=== PATIENT | male | born 1955 | race Hispanic/Latino ===

== ENCOUNTER 2019-04-09 09:25 | Emergency (ER) | payer SELFPAY ==
[~2019-04-09] VITALS: Ht 167.6 cm; Wt 86.2 kg
[2019-04-09] MEDS ORDERED: CLONIDINE HCL 0.2 MG TAB PO ONE (09:45)
[2019-04-09] MEDS ORDERED: HYDRALAZINE HCL 20 MG/ML VIAL IV STA (10:24)
[2019-04-09] MEDS ORDERED: HYDROCODONE/APAP 10MG-325MG TAB PO ONE (10:30)
--- NOTE | 2019-04-09 10:33 | Diagnostic Imaging Report ---
CT BRAIN WO, CT MAXIO FAC/PARANAS WO HISTORY: Left ear pain COMPARISON: None. TECHNIQUE: Axial CT images through the head and face were obtained without contrast. Coronal/sagittal reformations were created. One or more of the following dose reduction techniques were used: Automated exposure control, adjustment of the mA and/or kV according to patient size, and/or utilization of iterative reconstruction technique. DISCUSSION: HEAD CT: Scalp/Skull: Unremarkable. Brain sulci: Mildly prominent. Ventricles: Compensatory dilatation. Extra-axial spaces: No masses or fluid collections. Mild carotid siphon calcifications are present. Parenchyma: Approximately 1.2 cm cortical hyperdense lesion is seen in the medial left parietal lobe, near the anterior left parieto-occipital sulcus; there is no significant surrounding vasogenic edema or mass effect. Punctate cortical calcification along the right inferior frontal sulcus may be from remote infection or inflammation. Mild periventricular white matter hypodensities are likely chronic microvascular ischemic changes. Focal hypodense lesion in the right subinsular region may be a prominent perivascular space or old lacunar infarct. Otherwise, no mass or large vascular territory acute infarct. Dural sinuses: No abnormal densities. Sellar/Suprasellar region: Intact. Skull base: Intact. Incidental findings: None. FACIAL CT: Soft tissue thickening is seen along the left external auditory canal leung with associated obstruction laterally. Associated small left middle ear effusion is present as well. There is no associated osseous destruction. The left ossicles are grossly intact. No acute fracture is seen. No destructive osseous lesions are seen. The orbits are intact. Intraorbital contents are grossly unremarkable. Mild bilateral ethmoid air cell mucosal thickening is present. Otherwise, the visualized soft tissues are grossly unremarkable. IMPRESSION: Head CT: 1. Approximately 1.2 cm cortical hyperdense lesion in the medial left parietal lobe may be a cavernous malformation or small acute to subacute hematoma. No significant edema or mass effect. This can be further evaluated with brain MRI. 2. No other acute intracranial abnormalities. 3. Mild supratentorial chronic microvascular ischemic change. Mild generalized cerebral volume loss. 4. Focal hypodense lesion in the right subinsular region may be a prominent perivascular space or old lacunar infarct. 5. Punctate right frontal cortical calcification may be from remote infection or inflammation. Maxillofacial CT: 1. Soft tissue thickening along the left external auditory canal with obstruction laterally. No osseous destruction. This can be correlated with physical examination (otitis externa?). 2. Associated small left middle ear effusion. Signed by: Dr. Javier Diaz M.D. on 04/09/2019 10:29 AM
[2019-04-09] MEDS ORDERED: HYDRALAZINE HCL 20 MG/ML VIAL ONE (10:34)
[2019-04-09 10:40] LABS: BASOPHILS # (AUTO) 0.1 (0.0-0.1); BASOPHILS % 0.5 % (0.0-1.0); EOSINOPHILS # (AUTO) 0.1 (0.0-0.4); EOSINOPHILS % 0.9 % (0.0-6.0); HEMATOCRIT 41.3 % (38.2-49.6); HEMOGLOBIN 14.4 g/dL (14.0-18.0); LYMPHOCYTES # (AUTO) 1.6 (1.0-3.2); LYMPHOCYTES % 14.3 % (18.0-39.1); MEAN CORPUSCULAR HEMOGLOBIN 29.8 pg (28-32); MEAN CORPUSCULAR HGB CONC 34.9 g/dL (31-35); MEAN CORPUSCULAR VOLUME 85.3 fL (81-99); MONOCYTES # (AUTO) 0.8 (0.2-0.8); MONOCYTES % 6.9 % (4.4-11.3); NEUTROPHILS # (AUTO) 8.5 (2.1-6.9); NEUTROPHILS % 76.8 % (38.7-80.0); PLATELET COUNT 197 x10e3/uL (140-360); RED BLOOD COUNT 4.84 x10e6/uL (4.3-5.7); RED CELL DISTRIBUTION WIDTH 12.2 % (11.7-14.4)
[2019-04-09 11:03] LABS: ALBUMIN 3.5 g/dL (3.5-5.0); ALBUMIN/GLOBULIN RATIO 1.1 (0.8-2.0); ANION GAP 12.9 mmol/L (8-16); CALCIUM 9.5 mg/dL (8.4-10.2); CREATININE, SERUM 1.61 mg/dL (0.72-1.25); POTASSIUM 3.9 mmol/L (3.5-5.1)
[2019-04-09 11:11] LABS: CREATINE KINASE MB 0.5 ng/mL (0-5.0)
--- NOTE | 2019-04-09 11:11 | NUR ---
Walking rounds with Nayely. OMARI. Patient in no distress at this time.
[2019-04-09] MEDS ORDERED: GADOBENATE DIMEGLUMINE 1 ML IV ONE (11:42)
[2019-04-09] MEDS ORDERED: AUGMENTIN 875-1 EACH PO (14:37)
--- NOTE | 2019-04-09 15:17 | Diagnostic Imaging Report ---
MRI BRAIN WOW HISTORY: ear pain COMPARISON: Head and face CT from earlier today TECHNIQUE: Multiplanar, multisequence MRI of the brain (including diffusion-weighted imaging) was performed before and after the administration of intravenous, gadolinium based contrast. 17 mL of MultiHance were administered. DISCUSSION: Scalp/bone marrow: Incidental focal, nonaggressive enhancing lesion along the posterior inferior left maxillary sinus is likely a fibro-osseous lesion. Brain sulci: Mildly prominent. Ventricles: Compensatory dilatation. Extra-axial spaces: No masses or fluid collections. Parenchyma: Approximately 1.1 cm T1 hyperintense, T2 hypointense cortical lesion is seen along the anteroinferior left precuneus. There is mild surrounding T2/FLAIR hyperintensity and mild intrinsic magnetic susceptibility. No definite associated enhancement is seen. 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 Mild magnetic susceptibility in the left paramedian dusty is likely from remote microhemorrhage. Scattered T2/FLAIR hyperintense foci throughout the supratentorial white matter are likely chronic microvascular ischemic changes. Otherwise, no mass or acute vascular insults. No abnormal parenchymal, leptomeningeal, or dural enhancement is seen. Vessels: Normal flow voids in major arteries and veins. Sellar/Suprasellar region: No abnormalities. Craniocervical junction: No abnormalities. Incidental findings: Mild bilateral ethmoid air some mucosal thickening is present. Soft tissue swelling along the left external auditory canal is again noted; correlate for otitis externa. T2 hyperintense left mastoid and middle ear effusions are present. IMPRESSION: 1. Approximately 1.1 cm early subacute cortical hematoma in the medial left parietal lobe with mild surrounding vasogenic edema. No significant mass effect. This could be related to amyloid angiopathy, other vasculopathy, or cavernous malformation. Follow-up brain MRI in 3 months is recommended. 2. No other acute intracranial abnormalities. 3. Mild supratentorial chronic microvascular ischemic changes. 4. Mild generalized cerebral volume loss. 5. 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 Associated remote microhemorrhage in the left paramedian dusty may be related to hypertension or other vasculopathy. 6. Soft tissue swelling along the left external auditory canal; correlate for otitis externa. Associated left mastoid/middle ear effusion. Signed by: Dr. Javier Diaz M.D. on 04/09/2019 3:14 PM
--- NOTE | 2019-04-09 16:36 | NUR ---
TRANSFER INITIATED TO [facility] AT THIS TIME, SPOKE WITH LOIS.
--- NOTE | 2019-04-09 16:55 | NUR ---
report called to aurelio sigala rn for this pt. to go to [facility]5/bed 16. accepting physician is dr. esther lara.
--- NOTE | 2019-04-09 17:03 | NUR ---
[facility] WAS CALLED;SPOKE WITH SARI. ETA APPROX. 30-45MIN.
== END 2019-04-09 18:00 | disposition other institution (70) ==
LOC: ER 09:25
DX: H60.22 Malignant otitis externa, left ear (principal); I61.9 Nontraumatic intracerebral hemorrhage, unspecified; I10 Essential (primary) hypertension; E78.5 Hyperlipidemia, unspecified; Z86.73 Personal history of transient ischemic attack (TIA), and cerebral infarction without residual deficits
CPT/HCPCS: 36415; 70450; 70486; 70553; 80053; 82550; 82553; 84484; 85025; 99284; A9577; J0360